=== PATIENT | male | born 1975 | race Caucasian/White ===

== ENCOUNTER → 2023-09-03 08:00 | Outpatient (REF) | payer OTHER, SELFPAY | LOC: HWEVLT 08:00 | PROVIDERS: ATTENDING PHYSICIAN Radiology Diagnostic Radiology | DX: I83.891 Varicose veins of right lower extremity with other complications (principal) | CPT/HCPCS: 93971 ==

== ENCOUNTER → 2023-11-06 07:59 | Outpatient (REF) | payer OTHER, SELFPAY | LOC: HWEVLT 07:59 | PROVIDERS: ATTENDING PHYSICIAN Radiology Diagnostic Radiology | DX: I83.891 Varicose veins of right lower extremity with other complications (principal) | CPT/HCPCS: 36471; 36478; C1769 ==

== ENCOUNTER → 2023-11-26 12:07 | Outpatient (REF) | payer OTHER, SELFPAY | LOC: HWEVLT 12:07 | PROVIDERS: ATTENDING PHYSICIAN Radiology Vascular & Interventional Radiology | DX: I83.891 Varicose veins of right lower extremity with other complications (principal) | CPT/HCPCS: 93971 ==